=== PATIENT | female | born 1985 | race Caucasian/White ===

== ENCOUNTER → 2016-05-22 | Outpatient (CLI) | payer BC ==
[~2016-05-22] MED LIST: SYNTHROID137 MCG PO
== END | disposition home or self-care (01) ==
LOC: AMB 10:30
PROC: 0HB6XZZ Excision of Back Skin, External Approach (ICD-10-PCS; principal; 2016-05-22)
DX: D23.5 Other benign neoplasm of skin of trunk (principal)
CPT/HCPCS: 88305